=== PATIENT | male | born 1970 | race Two or more races ===

== ENCOUNTER 2017-05-21 07:43 | Emergency (ER) | payer OTHER ==
[~2017-05-21] VITALS: Ht 165.1 cm; Wt 72.6 kg
--- NOTE | 2017-05-21 07:50 | NUR ---
RECIEVED PATIENT TO ED BED 14, PT WALKED IN TO ED BED 14 BECAUSE HE WAS SENT BY PCP DR SOTO, FOR ABNORMAL EKG DONE ON 05/18/17~SHOWING SINUS BRADYCARDIA. PT STS THAT HE'S BEEN HAVING ON/OFF CHEST PAIN FOR THE LAST 4 MONTHS. PT SAID HE HAD CHEST PAIN LAST NIGHT-PINCHING [place]ILKE PAIN. PT DENIES PAIN AT THIS TIME. A/OX4, NAD VSS RR EVEN AND UNLABORED. GOWNED AND PLACED ON CONT MONITOR. WILL CONT TO MONITOR
[2017-05-21 08:28] LABS: BASOPHILS % (AUTO) 0.5 % (0.0-2.0); EOSINOPHILS % (AUTO) 3.3 % (0.0-6.0); HEMATOCRIT 47 % (39-51); LYMPHOCYTES # (AUTO) 1.9 /CMM (0.8-4.8); LYMPHOCYTES % (AUTO) 25.1 % (20.0-44.0); MEAN CORPUSCULAR HGB CONC 34 g/dl (31.0-36.0); MEAN CORPUSCULAR VOLUME 88 fL (80-96); MONOCYTES # (AUTO) 0.6 /CMM (0.1-1.30); MONOCYTES % (AUTO) 7.8 % (2.0-12.0); NEUTROPHILS # (AUTO) 4.8 /CMM (1.8-8.9); NEUTROPHILS % (AUTO) 63.3 % (43.0-81.0); PLATELET COUNT (AUTO) 225 /CMM (150-450); RDW COEFFICIENT OF VARIATION 13.3 (11.5-15.0); RED BLOOD CELL COUNT(AUTO) 5.34 MIL/uL (4.5-6.0); WHITE BLOOD COUNT (AUTO) 7.6 K/uL (4.3-11.0)
--- NOTE | 2017-05-21 08:32 | NUR ---
Patient is resting comfortably in bed with eyes closed. Easily aroused. VSS
[2017-05-21 08:49] LABS: CALCIUM, SERUM 8.6 mg/dL (8.5-10.1); CARBON DIOXIDE 27 mmol/L (21-32); CHLORIDE 105 mmol/L (98-107); GLUCOSE 107 mg/dL (74-106); POTASSIUM 3.9 mmol/L (3.5-5.1); SODIUM SERUM 142 mmol/L (136-145); UREA NITROGEN, BLOOD 13 mg/dL (7-18)
[2017-05-21 08:56] LABS: TROPONIN I < 0.017 ng/mL (0.00-0.056)
--- NOTE | 2017-05-21 10:27 | NUR ---
Patient discharged to home in stable condition. Written and verbal after care instructions given. Patient verbalizes understanding of instruction.
[2017-05-21 10:28] VITALS: BP 131/88
== END 2017-05-21 10:29 | disposition home or self-care (01) ==
LOC: ER 07:50
DX: R00.1 Bradycardia, unspecified (principal)
CPT/HCPCS: 36415; 71045-TC; 80048-TC; 84484-TC; 85025-TC; A4606; Z7610

== ENCOUNTER 2017-11-19 10:21 | Emergency (ER) | payer MEDICAID, OTHER ==
[~2017-11-19] VITALS: Ht 165.1 cm; Wt 74.8 kg
--- NOTE | 2017-11-19 10:57 | NUR ---
CALLED TO TRIAGE,PATIENT IN BATHROOM PER SECURITY
--- NOTE | 2017-11-19 11:00 | NUR ---
RECEIVED PATIENT CAME FROM HOME WITH CC OF RIGHT INNER THIGH PAIN R/T LOWER BACK X 1 WEEK 10/16 [facility] , VSS , ATTECHED TO MONITOR , WILL CONTINUE TO MONITOR .
[2017-11-19] MEDS ORDERED: HYDROCODONE/APAP 5/325MG 1 EACH TABLET ONE (11:14)
[2017-11-19] MEDS ORDERED: IBUPROFEN 600 MG TABLET PO ONE ×2 (11:15→11:30)
[2017-11-19] MEDS ORDERED: HYDROCODONE/APAP 5/325MG 1 EACH TABLET PO ONE (11:30)
[2017-11-19 11:32] VITALS: BP 120/50
--- NOTE | 2017-11-19 11:32 | NUR ---
Patient discharged to home in stable condition. Written and verbal after care instructions given. Patient verbalizes understanding of instruction.
== END 2017-11-19 11:32 | disposition home or self-care (01) ==
LOC: ER 10:28
DX: M54.5 Low back pain (principal)
CPT/HCPCS: A4606; Z7610